=== PATIENT | male | born 1975 | race Caucasian/White ===

== ENCOUNTER 2016-09-09 09:47 | Emergency (ER) | payer OTHER ==
[~2016-09-09] VITALS: Ht 175.3 cm; Wt 107.9 kg
[~2016-09-09 09:47] MED LIST: ALLOPURINOL300 MG PO; ASPIR-LOW81 MG PO; DILAUDID4 MG PO; DIOVAN160 MG PO; FLEXERIL10 MG PO; FLOMAX0.4 MG PO; LEVAQUIN750 MG PO; LORTAB 5-325 M1 EACH PO; MOTRIN800 MG PO; NAPROSYN500 MG PO; NAPROXEN500 MG PO; NORCO 5/3251 TABLET PO; OMEPRAZOLE20 M2 PO; PERCOCET 5/31 TABLET PO; POTASSIUM CITR10 MEQ PO; PREDNISONE20 MG PO; TORADOL10 MG PO; ZOFRAN4 MG PO; [UNRECOGNIZED DRUG - OTHER] PO
[2016-09-09 10:56] LABS: HEMATOCRIT 46.3 % (38.0-50.0); MCH 29.4 PG (29.0-34.0); MCHC 33.9 G/DL (30.0-36.0); MCV 86.7 FL (86-99); MEAN PLAT.VOLUME 10.7 uM^3 (9.0-12.4); PLATELET COUNT 225 K/uL (156-360); RBC DIS.WIDTH-CV 11.9 % (11.8-14.6); RBC DIS.WIDTH-SD 38.1 % (39-53); RED BLOOD COUNT 5.34 M/uL (4.00-5.50); WHITE BLOOD COUNT 4.9 K/uL (4.1-10.2)
[2016-09-09 11:13] LABS: CHLORIDE 106 mEq/L (99-109); POTASSIUM 4.8 mEq/L (3.7-5.4); SODIUM 140 mEq/L (136-147)
[2016-09-09 11:14] LABS: GLUCOSE 101 mg/dL (70-99)
[2016-09-09 11:16] LABS: ANION GAP 9 MEQ/L (2-14)
[2016-09-09 11:17] LABS: TROP-I INTERPRETATION NEGATIVE; TROPONIN-I < 0.01 ng/mL (0.0-0.30)
[2016-09-09 11:18] LABS: GFR ESTIMATE (CALCULATED) > 59 mL/min/
[2016-09-09 11:19] LABS: UREA NITROGEN (BUN) 13 mg/dL (9-23)
[2016-09-09 13:34] LABS: D-DIMER ELISA 0.23 mg/L FEU (< 0.57)
[2016-09-09 13:36] LABS: ADD MIUA? NO; BILIRUBIN NEGATIVE; BLOOD NEGATIVE; COLOR YELLOW ((YELLOW)); GLUCOSE (STRIP) NEGATIVE; KETONES NEGATIVE; LEUKOCYTES NEGATIVE; NITRITE NEGATIVE; PROTEIN (STRIP) NEGATIVE; SPECIFIC GRAVITY 1.019 (1.000-1.030); UCUL ADDED? NO; UROBILINOGEN 0.2 MG/DL (0.2-1.0)
[2016-09-09 13:58] LABS: TROP-I INTERPRETATION NEGATIVE; TROPONIN-I < 0.01 ng/mL (0.0-0.30)
[2016-09-09] MEDS ORDERED: ANTIVERT25 MG PO (15:26)
[2016-09-09] MEDS ORDERED: ATARAX,VISTARIL25 MG PO (15:26)
[2016-09-09] MEDS ORDERED: FIORICET 50-301 EACH PO (15:26)
[2016-09-09 15:53] VITALS: BP 133/82
== END 2016-09-09 15:54 | disposition home or self-care (01) ==
LOC: EME 09:47 → EXP 09:47
PROVIDERS: Physician Assistant
DX: R42 Dizziness and giddiness (principal); R51 Headache; R00.2 Palpitations; R07.9 Chest pain, unspecified; H53.8 Other visual disturbances
CPT/HCPCS: 71020; 80048; 81003; 84443; 84484; 85027; 85379; 87651 90; 93005; 99281; 99284

== ENCOUNTER 2017-12-03 11:54 | Emergency (ER) | payer BC ==
[~2017-12-03] VITALS: Ht 175.3 cm; Wt 107.5 kg
[~2017-12-03 11:54] MED LIST changes: +ANTIVERT25 MG PO; +ATARAX,VISTARIL25 MG PO; +FIORICET 50-301 EACH PO
[2017-12-03 12:34] LABS: HEMATOCRIT 46.1 % (38.0-50.0); HEMOGLOBIN 16.3 G/DL (12.5-16.6); MCH 30.3 PG (29.0-34.0); MCHC 35.4 G/DL (30.0-36.0); MCV 85.7 FL (86-99); PLATELET COUNT 221 K/uL (156-360); RBC DIS.WIDTH-CV 12.1 % (11.8-14.6); RBC DIS.WIDTH-SD 37.5 % (39-53); RED BLOOD COUNT 5.38 M/uL (4.00-5.50); WHITE BLOOD COUNT 6.4 K/uL (4.1-10.2)
[2017-12-03 12:43] LABS: CHLORIDE 104 mEq/L (99-109); POTASSIUM 4.7 mEq/L (3.7-5.4); SODIUM 137 mEq/L (136-147)
[2017-12-03 12:45] LABS: GLUCOSE 101 mg/dL (70-99)
[2017-12-03 12:49] LABS: GFR ESTIMATE (CALCULATED) > 59 mL/min/ (58.99-99999)
[2017-12-03 12:50] LABS: UREA NITROGEN (BUN) 9 mg/dL (9-23)
[2017-12-03 13:06] LABS: ALBUMIN 4.7 g/dL (3.2-4.8)
[2017-12-03 13:09] LABS: TOTAL PROTEIN 7.9 g/dL (6.4-8.3)
[2017-12-03 13:11] LABS: TOTAL BILIRUBIN 0.5 mg/dL (0.0-1.0)
[2017-12-03 13:12] LABS: ALKALINE PHOSPHATASE 95 IU/L (3-129)
[2017-12-03 13:13] LABS: SOURCE URINE
[2017-12-03 13:14] LABS: AST (GOT) 41 IU/L (2-34)
[2017-12-03 13:15] LABS: ALT (GPT) 63 IU/L (3-49); DIRECT BILIRUBIN 0.2 mg/dL (0.0-0.3)
[2017-12-03 13:16] LABS: LIPASE 45 U/L (1.0-51.0)
[2017-12-03 13:17] LABS: APPEARANCE CLEAR ((CLEAR)); BILIRUBIN NEGATIVE; BLOOD NEGATIVE; COLOR AMBER ((YELLOW)); GLUCOSE (STRIP) NEGATIVE; KETONES NEGATIVE; LEUKOCYTES NEGATIVE; NITRITE POSITIVE; PROTEIN (STRIP) NEGATIVE; SPECIFIC GRAVITY 1.008 (1.000-1.030)
[2017-12-03 13:21] LABS: BACTERIA NONE SEEN /HPF; EPITHELIAL CELLS NONE SEEN /HPF; MUCUS NONE SEEN /LPF; RED BLOOD CELLS 0-5 /HPF (0-5); UCUL ADDED? NO; WHITE BLOOD CELLS 0-5 /HPF (0-5)
[2017-12-03 14:42] VITALS: BP 143/94
[2017-12-05 12:51] LABS: CHLAMYDIA TRACHOMATIS NEGATIVE; NEISSERIA GONORRHOEAE NEGATIVE
== END 2017-12-03 14:44 | disposition home or self-care (01) ==
LOC: EME 11:54
PROVIDERS: Physician Assistant
DX: N20.0 Calculus of kidney (principal); K76.0 Fatty (change of) liver, not elsewhere classified; Z87.442 Personal history of urinary calculi; Z98.890 Other specified postprocedural states
CPT/HCPCS: 74176; 80048; 80076; 81003; 83690; 85027; 87086; 87491; 87591; 99281; 99284